=== PATIENT | male | born 1990 | race Two or more races ===

== ENCOUNTER 2018-01-11 00:37 | Emergency (ER) | payer SELFPAY ==
[~2018-01-11] VITALS: Ht 180.3 cm; Wt 80.4 kg
[~2018-01-11 00:37] MED LIST: TRAM150C25 PO
[2018-01-11 00:39] VITALS: BP 135/80
[2018-01-11] MEDS ORDERED: LIDOCAINE-MPF 2% ,5ML ONE (01:28)
[2018-01-11] MEDS ORDERED: BUPIVACAINE 0.25% ONE (01:29)
[2018-01-11] MEDS ORDERED: BUPIVACAINE/PF 0.5% INFIL ONE (01:30)
[2018-01-11] MEDS ORDERED: LIDOCAINE 2%, 20ML SQ ONE (01:30)
[2018-01-11] MEDS ORDERED: BUPIVACAINE/PF 0.25% INFIL STA (01:44)
== END 2018-01-11 02:27 | disposition home or self-care (01) ==
LOC: ED 01:20
DX: S83.421A Sprain of lateral collateral ligament of right knee, initial encounter (principal); K08.89 Other specified disorders of teeth and supporting structures; X58.XXXA Exposure to other specified factors, initial encounter; Y93.01 Activity, walking, marching and hiking; Y92.89 Other specified places as the place of occurrence of the external cause; Y99.8 Other external cause status; F17.200 Nicotine dependence, unspecified, uncomplicated
CPT/HCPCS: 64400; 99284

== ENCOUNTER 2018-02-21 22:46 | Emergency (ER) | payer SELFPAY ==
[~2018-02-21] VITALS: Ht 180.3 cm; Wt 79.6 kg
[2018-02-22] MEDS ORDERED: ONDANSETRON ODT 4 MG PO ONE
[2018-02-22] MEDS ORDERED: ONDANSETRON ODT 4 MG ONE (00:02)
[2018-02-22 00:07] LABS: BASOPHILS # (AUTO) 0.12 x10^3/uL (0-0.1); BASOPHILS % (AUTO) 1 % (0-1); EOSINOPHILS # (AUTO) 0.15 x10^3/uL (0-0.4); EOSINOPHILS % (AUTO) 1 % (1-7); LYMPHOCYTES # (AUTO) 1.62 x10^3/uL (1-3.4); LYMPHOCYTES % (AUTO) 13 % (22-44); MD NO; MEAN CORPUSCULAR HEMOGLOBIN 30.2 pg (27.5-34.5); MEAN CORPUSCULAR HGB CONC 34.1 g/dL (33.2-36.2); MEAN CORPUSCULAR VOLUME 88.4 fL (81-97); MONOCYTES # (AUTO) 0.98 x10^3/uL (0.2-0.8); MONOCYTES % (AUTO) 8 % (2-9); NEUTROPHILS # (AUTO) 9.87 x10^3/uL (1.8-6.8); NEUTROPHILS % (AUTO) 78 % (42-75); PLATELET COUNT 187 x10^3/uL (130-400); RED BLOOD COUNT 5.57 x10^6/uL (4.38-5.82); RED CELL DISTRIBUTION WIDTH 14.1 % (9.4-14.8)
[2018-02-22 00:18] LABS: ALANINE AMINOTRANSFERASE 25 U/L (12-78); ALBUMIN 4.1 g/dL (3.4-5.0); ANION GAP 8 mmol/L (5-15); CALCIUM 8.7 mg/dL (8.5-10.1); CHLORIDE 109 mmol/L (98-107); CREATININE 0.97 mg/dL (0.7-1.3)
[2018-02-22 00:21] LABS: ALKALINE PHOSPHATASE 70 U/L (45-117); BILIRUBIN,TOTAL 0.7 mg/dL (0.2-1.0); TOTAL PROTEIN 7.6 g/dL (6.4-8.2)
[2018-02-22 01:24] VITALS: BP 132/83
== END 2018-02-22 01:26 | disposition home or self-care (01) ==
LOC: ED 23:59
DX: R11.2 Nausea with vomiting, unspecified (principal); R19.7 Diarrhea, unspecified; R05 Cough; J45.909 Unspecified asthma, uncomplicated; R51 Headache; J02.9 Acute pharyngitis, unspecified
CPT/HCPCS: 36415; 71046; 80053; 83690; 85025; 99285; Q0162